=== PATIENT | female | born 2000 | race Asian ===

== ENCOUNTER → 2021-03-27 | Outpatient (CLI) | payer OTHER ==
--- NOTE | 2021-03-27 15:27 | KCIC ---
AP and Lateral Views of the Chest 03/27/2021 10:50 AM Indication: Reason: Positive TB test reactor. / Spl. Instructions: / History: Comparison: None Findings: There is no focal consolidation or infiltrate identified. The cardiomediastinal silhouette is within normal limits. There is no evidence of pneumothorax or pleural effusion. No acute osseous a bnormalities are identified. Impression: No evidence of acute cardiopulmonary process. Electronically signed by: Demetrius Alexander MD (03/27/2021 3:25 PM) [id number]
== END ==
LOC: KCIC 10:35
PROVIDERS: ATTEND Internal Medicine Pulmonary Disease
DX: A15.9 Respiratory tuberculosis unspecified (principal)
CPT/HCPCS: 71045